=== PATIENT | female | born 1970 | race Caucasian/White ===

== ENCOUNTER 2017-09-26 18:16 | Emergency (ER) | payer OTHER, SELFPAY ==
[2017-09-26] MEDS: ONDANSETRON 4 MG ORAL DISINTEGRATING TAB (Q0162 PER 1MG) PO ×2 (19:58)
[2017-09-26] MEDS: ACETAMINOPHEN TAB 650MG DOSE (2X325MG) PO ×2 (19:58)
[2017-09-26 20:25] LABS: BASO # 0.1 10^3/uL (0.0-0.2); BASO % 0.4 % (0.0-1.0); EOS % 0.1 % (0.0-3.0); HEMATOCRIT 42.3 % (36.0-47.0); HEMOGLOBIN 14.8 g/dl (12.0-15.5); IMMATURE GRANULOCYTE % 0.4 % (0-3.0); LYMPH # 1.1 10^3/uL (1.5-4.5); LYMPH % 7.9 % (24.0-44.0); MEAN CORPUSCULAR HEMOGLOBIN 31.3 pg (27.0-33.0); MEAN CORPUSCULAR VOLUME 89.4 fl (80.0-96.0); MONO # 1.7 10^3/uL (0.0-0.8); MONO % 12.2 % (0.0-5.0); PLATELET COUNT, AUTOMATED 237 10^3/uL (150-450); RED BLOOD COUNT 4.73 10^6/uL (4.00-5.40); RED CELL DISTRIBUTION WIDTH 13.4 % (11.5-14.5)
[2017-09-26 20:30] LABS: AMORPHOUS SEDIMENT RFX SMALL (NEGATIVE); KETONE, URINE AUTO RFX NEGATIVE (NEGATIVE); LEUKOCYTE ESTERASE UR AUTO RFX 3+ (NEGATIVE); MUCUS, URINE RFX SMALL (NEGATIVE); NITRITE, URINE AUTO RFX NEGATIVE (NEGATIVE); RBC, URINE AUTO RFX 148 /HPF (0-3); SPECIFIC GRAVITY UR AUTO RFX 1.006 (1.002-1.035); SQUAM EPITHELIAL CELL UR AURFX 1 /HPF (0-6); WBC, URINE AUTO RFX TNTC /HPF (0-3)
[2017-09-26 20:43] LABS: ALBUMIN 3.4 GM/DL (3.2-5.2); ALBUMIN/GLOBULIN RATIO 0.74 (1.00-1.93); ALKALINE PHOSPHATASE 80 U/L (45-117); ALT/SGPT 16 U/L (12-78); ANION GAP 6 MEQ/L (8-16); AST/SGOT 11 U/L (7-37); BILIRUBIN,DIRECT < 0.1 MG/DL (0.0-0.2); BILIRUBIN,TOTAL 0.4 MG/DL (0.2-1.0); BLOOD UREA NITROGEN 10 MG/DL (7-18); CALCIUM LEVEL 8.6 MG/DL (8.5-10.1); CARBON DIOXIDE LEVEL 26 MEQ/L (21-32); CHLORIDE LEVEL 103 MEQ/L (98-107); CREATININE FOR GFR 0.94 MG/DL (0.55-1.30); GLOMERULAR FILTRATION RATE > 60.0 (>58); GLUCOSE, FASTING 95 MG/DL (70-100); POTASSIUM SERUM 3.7 MEQ/L (3.5-5.1); SODIUM LEVEL 135 MEQ/L (136-145)
[2017-09-26 20:49] LABS: INFLUENZA A AMPLIFICATION NEGATIVE (NEGATIVE); INFLUENZA B AMPLIFICATION NEGATIVE (NEGATIVE)
[2017-09-26] MEDS: IBUPROFEN 600 MG TAB PO ×2 (23:03)
[2017-09-26] MEDS: cefTRIAXone SOD 1 GM in D5W MINI-BAG PLUS 50 ML IV (23:04)
[2017-09-26] MEDS: NS 1,000 ML IV ×2 (23:28)
[2017-09-26 23:31] LABS: LACTIC ACID SEPSIS PROTOCOL 0.8 MMOL/L (0.4-2.0)
== END 2017-09-27 01:09 | disposition home or self-care (01) ==
LOC: M ED 09-27 01:09
DX: N39.0 Urinary tract infection, site not specified (principal); N20.9 Urinary calculus, unspecified; F17.200 Nicotine dependence, unspecified, uncomplicated
CPT/HCPCS: J0696

== ENCOUNTER → 2017-11-22 | Outpatient (REF) | payer OTHER | LOC: M SFHCLERA 16:02 | DX: J02.9 Acute pharyngitis, unspecified (principal) ==

== ENCOUNTER → 2018-01-24 | Outpatient (REF) | payer OTHER, SELFPAY ==
[2018-01-24 16:54] LABS: CHOLESTEROL LEVEL 126 MG/DL (<200); CHOLESTEROL RISK RATIO 2.377 (<5); HDL CHOLESTEROL 53 MG/DL (>40); LDL CHOLESTEROL 60 MG/DL (<100); NON-HDL-C 73 MG/DL; TRIGLYCERIDES LEVEL 65 MG/DL (<150)
[2018-01-24 21:07] LABS: URINE PREG TEST NEGATIVE (NEGATIVE)
[2018-01-24 21:08] LABS: CONTROL LINE UCG INT CTR LINE PRESENT
== END ==
LOC: M SFHCPLAZ 13:54
DX: Z72.0 Tobacco use (principal); Z13.6 Encounter for screening for cardiovascular disorders
CPT/HCPCS: 84703

== ENCOUNTER → 2018-02-24 | Outpatient (REF) | payer OTHER | LOC: M SFHCPLAZ 12:41 | DX: Z01.419 Encounter for gynecological examination (general) (routine) without abnormal findings (principal); Z53.9 Procedure and treatment not carried out, unspecified reason ==

== ENCOUNTER → 2018-02-24 | Outpatient (REF) | payer OTHER, SELFPAY ==
[2018-02-24 18:13] LABS: CHLAMYDIA DNA AMPLIFICATION NEGATIVE (NEGATIVE); GC DNA AMPLIFICATION NEGATIVE (NEGATIVE)
[2018-03-02 15:46] LABS: HPV HYBRID CAPTURE II Negative (Negative)
== END ==
LOC: M SFHCPLAZ 15:44
DX: Z12.4 Encounter for screening for malignant neoplasm of cervix (principal); R87.610 Atypical squamous cells of undetermined significance on cytologic smear of cervix (ASC-US)
CPT/HCPCS: 87591

== ENCOUNTER 2018-11-29 19:44 | Emergency (ER) | payer SELFPAY ==
[~2018-11-29] VITALS: Ht 165.1 cm; Wt 75.0 kg
[~2018-11-29 19:44] MED LIST: CIPR-249 PO; IBUP-1114 PO
[2018-11-29 20:59] LABS: HEMATOCRIT 42.2 % (36.0-47.0); HEMOGLOBIN 14.2 g/dl (12.0-15.5); MEAN CORPUSCULAR HEMOGLOBIN 30.1 pg (27.0-33.0); MEAN CORPUSCULAR HGB CONC 33.6 g/dl (32.0-36.5); MEAN CORPUSCULAR VOLUME 89.6 fl (80.0-96.0); PLATELET COUNT, AUTOMATED 308 10^3/uL (150-450); RED BLOOD COUNT 4.71 10^6/uL (4.00-5.40); WHITE BLOOD COUNT 10.1 10^3/uL (4.0-10.0)
[2018-11-29] MEDS ORDERED: IBUPROFEN 600 MG TAB PO ONE (21:15)
[2018-11-29 21:23] LABS: ALBUMIN 3.4 GM/DL (3.2-5.2); ALT/SGPT 14 U/L (12-78); BILIRUBIN,DIRECT < 0.1 MG/DL (0.0-0.2); BILIRUBIN,TOTAL 0.1 MG/DL (0.2-1.0); LIPASE 81 U/L (73-393); TOTAL PROTEIN 7.2 GM/DL (6.4-8.2)
--- NOTE | 2018-11-29 23:14 | REPVR ---
EXAM: US Pelvis Complete, Transabdominal EXAM DATE/TIME: 11/29/2018 10:04 PM CLINICAL HISTORY: 48 years old, female; Abdominal pain; Other: RT flank; Additional info: Left lower pelvic pain TECHNIQUE: Imaging protocol: Real-time transabdominal pelvic ultrasound with image documentation. Complete exam. COMPARISON: RENAL US 09/26/2017 10:14 PM FINDINGS: Uterus/cervix: Uterus measures 7.4 x 4.8 x 5.8 cm. Vaguely peripherally calcified myometrial mass measures 2.8 x 2.4 x 2.9 cm likely representing a fibroid. Endometrial echocomplex 6.3 mm. Right adnexa: Right ovary measures 1.8 x 1.2 x 1.3 cm. Left adnexa: Left ovary measures 2.3 x 1.3 x 1.9 cm. Free fluid: None. Bladder: Normal. IMPRESSION: Probable uterine fibroid. Further evaluation with vaginal imaging suggested although declined by the patient on today's examination. Electronically signed by: Alexey Manjarrez On 11/29/2018 23:13:33 PM
[2018-11-29 23:51] VITALS: BP 109/73
--- NOTE | 2018-12-02 19:59 | ED PDOC ---
Post-Departure Follow-Up dr [email or web address] faxed formal report of pelvic us for fu Liu Mendoza MD Dec 02, 2018 19:59
== END 2018-11-29 23:53 | disposition home or self-care (01) ==
LOC: M ED 19:44
DX: D25.9 Leiomyoma of uterus, unspecified (principal); K57.32 Diverticulitis of large intestine without perforation or abscess without bleeding; R00.0 Tachycardia, unspecified; K80.20 Calculus of gallbladder without cholecystitis without obstruction; Z90.49 Acquired absence of other specified parts of digestive tract; Z72.0 Tobacco use

== ENCOUNTER → 2021-01-26 | Outpatient (REF) | LOC: M LAB 12:03 | PROVIDERS: ATTEND Nurse Practitioner Adult Health | DX: Z00.00 Encounter for general adult medical examination without abnormal findings (principal) ==

== ENCOUNTER 2021-05-10 19:55 | Emergency (ER) | payer OTHER, SELFPAY ==
[~2021-05-10] VITALS: Ht 165.1 cm; Wt 79.5 kg
[2021-05-10 19:56] VITALS: BP 140/92
[2021-05-11] MEDS ORDERED: IBUPROFEN 800 MG TAB PO ONE (00:55)
[2021-05-11] MEDS ORDERED: IBUP80TA PO (00:57)
== END 2021-05-11 01:37 | disposition home or self-care (01) ==
LOC: M ED 19:55
DX: S63.602A Unspecified sprain of left thumb, initial encounter (principal); W01.0XXA Fall on same level from slipping, tripping and stumbling without subsequent striking against object, initial encounter; Y92.238 Other place in hospital as the place of occurrence of the external cause; Y99.0 Civilian activity done for income or pay; F17.210 Nicotine dependence, cigarettes, uncomplicated

== ENCOUNTER 2022-04-12 23:38 | Emergency (ER) | payer OTHER, SELFPAY ==
[~2022-04-12] VITALS: Ht 165.1 cm; Wt 84.1 kg
[~2022-04-12 23:38] MED LIST changes: +IBUP80TA PO
[2022-04-13] MEDS ORDERED: ALBU6.7H6 INH (08:38)
[2022-04-13] MEDS ORDERED: AMOX875T2 PO (08:38)
[2022-04-13] MEDS ORDERED: BENZ200C70 PO (08:38)
[2022-04-13 09:01] VITALS: BP 131/89
== END 2022-04-13 09:16 | disposition home or self-care (01) ==
LOC: M ED 23:38
DX: J45.909 Unspecified asthma, uncomplicated (principal); J98.01 Acute bronchospasm; J06.9 Acute upper respiratory infection, unspecified; B97.4 Respiratory syncytial virus as the cause of diseases classified elsewhere; F17.200 Nicotine dependence, unspecified, uncomplicated

== ENCOUNTER → 2024-06-27 | Outpatient (REF) ==
[~2024-06-27] MED LIST changes: +ALBU6.7H6 INH; +AMOX875T2 PO; +BENZ200C70 PO
== END ==
LOC: M EMP 12:25
PROVIDERS: ATTEND Family Medicine
DX: Z11.52 Encounter for screening for COVID-19 (principal); Z20.822 Contact with and (suspected) exposure to COVID-19

== ENCOUNTER → 2024-08-15 | Outpatient (REF) | LOC: M EMP 12:16 | PROVIDERS: ATTEND Family Medicine | DX: Z01.89 Encounter for other specified special examinations (principal) ==

== ENCOUNTER → 2025-02-04 | Outpatient (REF) | LOC: M EMP 14:15 | PROVIDERS: ATTEND Family Medicine | DX: Z11.52 Encounter for screening for COVID-19 (principal) ==